=== PATIENT | female | born 1980 | race Hispanic/Latino ===

== ENCOUNTER 2017-03-26 14:40 | Emergency (ER) | payer BC ==
[2017-03-26 14:45] VITALS: BP 141/74; PULSE 72; RESP 18; TEMP 98.2; O2SAT 99
[2017-03-26] MEDS ORDERED: TDAP Vaccine 0.5 mL Syr IM ONE (14:54)
[2017-03-26] MEDS ORDERED: Lidocaine 1% Inj (20ml) IJ STA (14:54)
[2017-03-26] MEDS ORDERED: Lidocaine 1% Inj (20ml) ONE (14:56)
--- NOTE | 2017-03-26 15:06 | ED PDOC ---
HPI: Wound Care - HPI Time Seen by Provider: 03/26/17 14:49 Chief Complaint (Nursing): Abnormal Skin Integrity Chief Complaint (Provider): hand laceration History Per: Patient Additional Complaint(s): 36-year-old right-hand dominant female presents with laceration to left hand sustained when she cut her hand accidentally with a knife. Patient applied pressure dressing and came to ED. She is not sure of her last tetanus shot. Patient denies acute pain to affected area, no numbness or tingling to the affected area. Past Medical History Reviewed: Historical Data, Nursing Documentation, Vital Signs Vital Signs: Last Vital Signs Temp 98.2 F 03/26/17 14:42 Pulse 72 03/26/17 14:42 Resp 18 03/26/17 14:42 BP 141/74 03/26/17 14:42 Pulse Ox 99 03/26/17 14:42 - Medical History PMH: Hypothyroidism, Malignancy (non-hodgkin's lymphoma) - Surgical History Other surgeries: mediport insertion - Family History Family History: States: No Known Family Hx - Living Arrangements Living Arrangements: With Family - Social History Current smoker - smoking cessation education provided: No Alcohol: None Drugs: Denies - Immunization History Hx Tetanus Toxoid Vaccination: No (last booster was in 2004) - Allergies Allergies/Adverse Reactions: Allergies Allergy/AdvReac Type Severity Reaction Status Date / Time No Known Allergies Allergy Verified 03/26/17 14:53 Review of Systems ROS Statement: Except As Marked, All Systems Reviewed And Found Negative Musculoskeletal: Positive for: Other (left hand laceration) Physical Exam - Reviewed Nursing Documentation Reviewed: Yes Vital Signs Reviewed: Yes - Physical Exam Appears: Positive for: Well, Non-toxic, No Acute Distress Skin: Negative for: Rash Extremity: Positive for: Other (1 cm laceration noted to interdigital space between 2nd and 3rd digits of left hand, no active bleeding, full rom of all digits of left hand, normal sensation surrounding wound) Neurologic/Psych: Positive for: Alert, Oriented - Laboratory Results Urine POC: Negative - ECG O2 Sat by Pulse Oximetry: 99 Pulse Ox Interpretation: Normal Medical Decision Making Medical Decision Makin36 year old with left hand laceration. Plan: test tetanus booster Laceration repair - patient agrees to suture repair by publications writer, she is aware of scar potential. Procedure note: Under sterile conditions, laceration to left hand was anesthetized with 5 mL of 1% lidocaine without epinephrine injected locally, good anesthesia was achieved. Wound was irrigated with normal saline and Betadine, wound was explored for foreign bodies, no foreign body seen. 3 simple interrupted 5-0 nylon sutures were used to approximate wound edges, good wound approximation was achieved, good bleeding control was achieved. Procedure was tolerated well by patient, no complications. Sterile bandage applied. Patient was given wound care instructions. Disposition - Clinical Impression Clinical Impression: Hand laceration, Requires a booster tetanus - Patient ED Disposition Is Patient to be Admitted: No Counseled Patient/Family Regarding: Diagnosis, Need For Followup - Disposition Referrals: [facility] [Outside] Disposition: Routine/Home Disposition Time: 15:47 Condition: STABLE Additional Instructions: Keep wound clean and dry. Take motrin or tylenol as needed for pain. Wound check 2-3 days. Suture removal 10-14 days. Instructions: Care For Your Stitches (ED), Laceration (ED), Diphtheria/ Acellular Pertussis/Tetanus Vaccine (DTaP) (By injection)
== END 2017-03-26 16:07 | disposition home or self-care (01) ==
LOC: H.ER 14:40
DX: S61.412A Laceration without foreign body of left hand, initial encounter (principal); Z23 Encounter for immunization; Z85.72 Personal history of non-Hodgkin lymphomas; W26.0XXA Contact with knife, initial encounter